=== PATIENT | male | born 1940 | race African-American/Black ===

== ENCOUNTER 2022-11-30 12:02 | Outpatient (AMB) | payer OTHER, SELFPAY ==
--- NOTE | 2022-11-30 12:34 | A.OFFVIS_ITS ---
Intake Vital Signs 11/30/22 12:35 Height 5 ft 4.5 in Weight 139 lb 12.369 oz BMI 23.6 BP 126/58 L Blood Pressure Location Lt brachial Position Sitting Pulse 89 Intake Visit Reasons: Acute pancreatitis Intake Note: Herb presents in office as a new.patient for acute pancreatitis PT CC: pt reports having diarrhea pt denies any other GI issues Tar Boiler Required: No Accompanied by: Daughter Allergies No Known Allergies Allergy (Verified 11/30/22 12:35) HPI HPI Comments History of Present Illness Details This is an 82-year-old gentleman with PMH of CRC s/p ileorectal anastomosis who was referred by his primary care provider for an episode of biliary pancreatitis in December 2021. History obtained by the patient as well as records from [facility]. Patient presented with abdominal pain and is found to have acute pancreatitis in the setting of CBD sludge. In addition, he was also noted to have mucosal irregularity in the ileorectal anastomosis noted on that same CT scan. He was evaluated by Dr. Ramirez and underwent EGD with EUS as well as flexible sigmoidoscopy (01/13/22) that showed: * LA grade C erosive esophagitis. 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 He then subsequently underwent ERCP which failed as the papilla could not be localised. Plan was for outpatient IR vs EUS assisted rendezvous ERCP however when pt was called by the [facility] office he declined a follow up. He is now here today for further management. [facility] Medical History (Updated 11/30/22 @ 13:12 by Sarah Espinoza MD) History of colon cancer Surgical History (Updated 11/30/22 @ 13:12 by Sarah Espinoza MD) Lymph node cancer Social History (Updated 11/30/22 @ 12:37 by Josias Pizarro) Household Members: Family Alcohol intake: never Patient Tobacco Use Status: Never used Tobacco Use of substances other than those prescribed or required for medical reasons: No Review of Systems Const All systems reviewed & are unremarkable except as noted in HPI and below Physical Exam Vital Signs: Last Vital Signs Pulse 89 11/30/22 12:35 BP 126/58 L 08/01/23 12:35 BMI result Body Mass Index 23.6 Gen appear: NAD HEENT: nonicteric, no cervical lymphadenopathy Chest: CTA CVS: Regular S1/S2 Abd: soft, nontender, nondistended, bowel sounds + Ext: no peripheral edema Neuro: A/Ox3, noted to move all extremities spontaneously Psych: interacting appropriately Assessment & Plan Assessment & Plan (1) History of colon cancer: Code(s): Z85.038 - Personal history of other malignant neoplasm of large intestine (2) Biliary acute pancreatitis: Code(s): K85.10 - Biliary acute pancreatitis without necrosis or infection (3) Dilated cbd, acquired: Code(s): K83.8 - Other specified diseases of biliary tract (4) Pancreatic duct dilated: Code(s): K86.89 - Other specified diseases of pancreas Plan Reviewed with the pt and the daughter that we do not have the capability to perform EUS or IR guided ERCP here at [facility] and that he will need to follow up with [facility] to rebook his procedure, which he had previously declined. Coding Level of Care Code New Pt Level 4 (37706) Diagnoses History of colon cancer Z85.038 Biliary acute pancreatitis K85.10 Dilated cbd, acquired K83.8 Pancreatic duct dilated K86.89
[2022-11-30 12:35] VITALS: BP 126/58; PULSE 89; BMI 23.6
== END 2022-11-30 13:08 | disposition home or self-care (01) ==
PROVIDERS: PCP Hospitalist; Visit Provider Internal Medicine
DX: Z85.038 Personal history of other malignant neoplasm of large intestine (principal); K85.10 Biliary acute pancreatitis without necrosis or infection; K83.8 Other specified diseases of biliary tract; K86.89 Other specified diseases of pancreas
CPT/HCPCS: 99204

== ENCOUNTER → 2022-11-30 12:02 | Outpatient (BNVA) | payer OTHER, SELFPAY | PROVIDERS: PCP Hospitalist; Visit Provider Internal Medicine | DX: K83.8 Other specified diseases of biliary tract (principal); K86.89 Other specified diseases of pancreas; K85.10 Biliary acute pancreatitis without necrosis or infection; Z85.038 Personal history of other malignant neoplasm of large intestine | CPT/HCPCS: 99202 ==